=== PATIENT | male | born 1975 | race Caucasian/White ===

== ENCOUNTER 2021-08-11 23:07 | Inpatient (IN) | payer OTHER ==
[~2021-08-11] VITALS: Ht 177.8 cm; Wt 59.0 kg
[2021-08-12 00:29] LABS: RED BLOOD COUNT 5.31 M/UL (4.20-5.50); WHITE BLOOD COUNT 12.7 K/UL (4.5-11.0)
[2021-08-12 01:25] LABS: BUN/CREATININE RATIO 31 (0-10)
[2021-08-12 11:05] LABS: BUN/CREATININE RATIO 22 (0-10)
[2021-08-12] MEDS ORDERED: PROVENTIL HFA6.7 GM INH (14:52)
[2021-08-12] MEDS ORDERED: ESCITALOPRAM OX10 MG PO (14:52)
[2021-08-12] MEDS ORDERED: CLONAZEPAM2 MG PO (14:55)
[2021-08-12] MEDS ORDERED: BUPRENORPHIN-N1 EACH SL ×2 (14:56→14:57)
[2021-08-12] MEDS ORDERED: CARISOPRODOL350 MG PO (14:56)
[2021-08-12 16:32] LABS: BUN/CREATININE RATIO 23 (0-10)
[2021-08-12 21:51] LABS: BUN/CREATININE RATIO 28 (0-10)
[2021-08-12 22:35] LABS: CANDIDA ALBICANS Not Detected (Negative); CANDIDA KRUSEI Not Detected (Negative); CANDIDA TROPICALIS Not Detected (Negative); ESCHERICHIA COLI Not Detected (Negative); HAEMOPHILUS INFLUENZAE Not Detected (Negative); KLEBSIELLA OXYTOCA Not Detected (Negative); KLEBSIELLA PNEUMONIAE Not Detected (Negative); KPC-CARBAPENEM-RESISTANCE GENE Not Detected (Negative); PROTEUS Not Detected (Negative); PSEUDOMONAS AERUGINOSA Not Detected (Negative); SERRATIA MARCESANS Not Detected (Negative); STAPHYLOCOCCUS AUREUS Not Detected (Negative); STREP AGALACTIAE (GROUP B) Not Detected (Negative); STREP PYOGENES (GROUP A) Not Detected (Negative); STREPTOCOCCUS Not Detected (Negative); vanA/B (VANCOMYCIN RESIST GENE Not Detected (Negative)
[2021-08-12 23:44] LABS: STAPHYLOCOCCUS DETECTED (Negative)
[2021-08-13 03:49] LABS: WHITE BLOOD COUNT 11.7 K/UL (4.5-11.0)
[2021-08-13 04:08] LABS: HEMOGLOBIN 13.1 gm/dl (14.0-17.5); RED BLOOD COUNT 4.2 M/UL (4.20-5.50)
[2021-08-13 04:22] LABS: BUN/CREATININE RATIO 30 (0-10)
[2021-08-13 13:29] LABS: BUN/CREATININE RATIO 25 (0-10)
[2021-08-13 21:51] LABS: BUN/CREATININE RATIO 20 (0-10)
[2021-08-14 01:51] LABS: HEMOGLOBIN 13.5 gm/dl (14.0-17.5); RED BLOOD COUNT 4.32 M/UL (4.20-5.50); WHITE BLOOD COUNT 10.1 K/UL (4.5-11.0)
[2021-08-14 02:13] LABS: BUN/CREATININE RATIO 23 (0-10)
[2021-08-15 05:38] LABS: HEMOGLOBIN 13.4 gm/dl (14.0-17.5); RED BLOOD COUNT 4.27 M/UL (4.20-5.50); WHITE BLOOD COUNT 8.5 K/UL (4.5-11.0)
[2021-08-15 06:12] LABS: BUN/CREATININE RATIO 19 (0-10)
[2021-08-15] MEDS ORDERED: AMOX TR-K CLV1 EAC4 PO (09:51)
[2021-08-15 15:15] LABS: HBSAG SCREEN Negative (Negative); HCV AB >11.0 (0.0-0.9); HEP A AB, IGM Negative (Negative); HEP B CORE AB, IGM Positive (Negative); HEPATITIS C QUANTITATION HCV Not Detected IU/mL (.)
== END 2021-08-15 11:27 | disposition home or self-care (01) | DRG 871 ==
LOC: ER1 23:07 → CDU 08-12 01:36 → PROG CARE 08-12 01:36
PROVIDERS: Internal Medicine; Student in an Organized Health Care Education/Training Program; ADMIT Internal Medicine
PROC: 3E03329 Introduction of Other Anti-infective into Peripheral Vein, Percutaneous Approach (ICD-10-PCS; principal; 2021-08-12)
PROC: 5A0945A Assistance with Respiratory Ventilation, 24-96 Consecutive Hours, High Flow/Velocity Cannula (ICD-10-PCS; 2021-08-12)
DX: A41.1 Sepsis due to other specified staphylococcus (principal); J96.21 Acute and chronic respiratory failure with hypoxia; J69.0 Pneumonitis due to inhalation of food and vomit; G92.8 Other toxic encephalopathy; Z20.822 Contact with and (suspected) exposure to COVID-19; J18.9 Pneumonia, unspecified organism; E87.1 Hypo-osmolality and hyponatremia; N17.9 Acute kidney failure, unspecified; F11.20 Opioid dependence, uncomplicated; E87.2 Acidosis; E86.1 Hypovolemia; I95.9 Hypotension, unspecified; F15.10 Other stimulant abuse, uncomplicated; F12.10 Cannabis abuse, uncomplicated; J43.9 Emphysema, unspecified; R59.1 Generalized enlarged lymph nodes; K82.9 Disease of gallbladder, unspecified; E86.0 Dehydration; F17.210 Nicotine dependence, cigarettes, uncomplicated; I45.81 Long QT syndrome; R65.20 Severe sepsis without septic shock
CPT/HCPCS: 0240U; 36415; 36600; 70450; 80048; 80053; 80074; 80202; 80307; 81001; 82436; 82550; 82553; 82570; 82803; 83605; 83735; 84100; 84132; 84133; 84156; 84300; 84439; 84443; 84484; 85025; 85027; 87040; 87077; 87150; 87186; 93005; 94640; 94664; 94760; 96365; 96367; 97116; 97116-GP-CQ; 97162; 99285; G0480; J1650; J2543; J2597; J3370; J3475; J3480; J7030; J7070; Q9967